=== PATIENT | female | born 2000 | race Caucasian/White ===

== ENCOUNTER 2019-08-16 22:28 | Emergency (ER) | payer SELFPAY ==
[~2019-08-16] VITALS: Ht 154.9 cm; Wt 58.3 kg
[~2019-08-16 22:28] MED LIST: CEPH-443 PO
[2019-08-16 22:35] VITALS: BP 129/60; PULSE 80; RESP 16; Ht 154.9 cm; Wt 58.3 kg
[2019-08-16] MEDS ORDERED: KETOROLAC 30 MG INJ IM STA (23:38)
== END 2019-08-17 02:10 | disposition home or self-care (01) ==
LOC: FTE 22:28
DX: N30.01 Acute cystitis with hematuria (principal); J45.909 Unspecified asthma, uncomplicated
CPT/HCPCS: 76705; 80053; 81001; 81025; 83690; 85025; 87086; 96372; 99285; J1885